=== PATIENT | male | born 1975 ===

== ENCOUNTER 2020-09-17 06:34 | Day surgery (SDC) | payer OTHER ==
[~2020-09-17] VITALS: Ht 176 cm; Wt 104.0 kg
[~2020-09-17 06:34] MED LIST: NO HOME MEDS; clindamycin-Cleocin 900mg/D5W 50 ML IV ONE; famotidine 20mg tablet PO ONE; ringers solution, lacted 1,000 ML IV SCH
[2020-09-17 06:50] VITALS: BP 138/82
[2020-09-17] MEDS ORDERED: LIDOcaine 1% (10mg/ml) 2ml vial ONE (07:24)
[2020-09-17] MEDS ORDERED: cloNIDine hcl/PF 100mcg/ml inj ONE (08:35)
[2020-09-17] MEDS ORDERED: proCHLORperazine 10 MG/2 ml inj IV PRN (09:40)
[2020-09-17] MEDS ORDERED: morphine 4 MG/ML inj SYRINge IV PRN (09:40)
[2020-09-17] MEDS ORDERED: ondansetron/PF 4mg/2ml inj IV PRN (09:40)
[2020-09-17] MEDS ORDERED: ringers solution, lacted 1,000 ML IV SCH (09:40)
[2020-09-17] MEDS ORDERED: morphine 2 MG/ML inj. syringe IV PRN (09:40)
[2020-09-17] MEDS ORDERED: meperidine/PF 25mg/ml syringe IV PRN ×3 (09:40)
[2020-09-17] MEDS ORDERED: midazolam 2 mg/2 ml injection ONE (10:13)
[2020-09-17] MEDS ORDERED: propofol inj 20 ML IV ONE (10:13)
[2020-09-17] MEDS ORDERED: fentaNYL/PF 50MCG/1 ML 2ML syringe ONE (10:13)
[2020-09-17] MEDS ORDERED: cefazolin/dext.iso 2,000MG/50 ML BAG IV ONE (10:13)
[2020-09-17] MEDS ORDERED: sevoflurane 250ml liquid IH ONE (10:13)
[2020-09-17] MEDS ORDERED: ROPIVAcaine 0.5% (5mg/ml) 30ml vial ONE (10:17)
[2020-09-17 13:21] VITALS: BP 123/92
--- NOTE | 2020-09-17 13:21 | NUR ---
Received from OR via [facility] , accompanied by Anesthesiologist SHAGUFTA and report given by Anesthesiolgist. PATIENT WITH 20G PIV IN RIGHT UE RUNNING LR AT 100. 10L MASK ON WITH 100% SATS, LEFT UE IN SPLINT AND SLING. + CAP REFILL TO ALL FINGERS AND THUMB. VSS. Addendum: 09/17/20 at 1333 by Jd Cao RN, RN Amended: Links added.
[2020-09-17 13:30] VITALS: BP 127/80
[2020-09-17 13:40] VITALS: BP 117/81
[2020-09-17 13:50] VITALS: BP 117/85
[2020-09-17 14:00] VITALS: BP 120/84
--- NOTE | 2020-09-17 14:11 | NUR ---
PATIENT VERBALIZED UNDERSTANDING, OPPORTUNITY TO ASK QUESTIONS GIVEN AND PATIENT COMFORTABLE WITH DC. IV TAKEN OUT WITHOUT COMPLICATION. PATIENT HAS MET ALL DC CRITERIA FOR DC HOME. TAKEN OUT VIA WHEELCHAIR WHERE PATIENT WAS TAKEN HOME WITH ALL BELONGINGS. GUARDS GAVE PATIENT TRANSPORT HOME. LEFT UE IN SLING THAT IS CDI. + CAP REFILL. PWD, + BLANCHING. Addendum: 09/17/20 at 1426 by Jd Cao RN, RN Amended: Links added.
== END 2020-09-17 14:21 ==
LOC: PAS 06:34 → EEVIPCON 10:00 → PAS 14:21
PROVIDERS: ATTEND Orthopaedic Surgery
DX: S46.212A Strain of muscle, fascia and tendon of other parts of biceps, left arm, initial encounter (principal); E66.9 Obesity, unspecified; Z68.33 Body mass index [BMI] 33.0-33.9, adult; Z79.899 Other long term (current) drug therapy; G89.18 Other acute postprocedural pain; Z86.16 Personal history of COVID-19; Z88.0 Allergy status to penicillin; X58.XXXA Exposure to other specified factors, initial encounter; Y93.89 Activity, other specified; Y92.89 Other specified places as the place of occurrence of the external cause; Y99.8 Other external cause status
CPT/HCPCS: 24342; 64417; 76942; 82948; 93005; C1713; C1762; J0735; J2001; J2250; J2704; J3010; J7120; A4215; A4618; A6449; A7000; J2795